=== PATIENT | male | born 1940 | race Caucasian/White ===

== ENCOUNTER 2017-06-01 12:46 | Outpatient (CLI) | payer MEDICARE, OTHER ==
[2017-06-01 17:51] LABS: BASOPHILS % (AUTO) 0.5 %; EOSINOPHILS # (AUTO) 0.1 10^3/uL (0.0-0.7); EOSINOPHILS % (AUTO) 2.1 %; HCT - HEMATOCRIT 46.9 % (42.0-52.0); HGB - HEMOGLOBIN 15.4 g/dL (14.0-18.0); LYMPHOCYTES # (AUTO) 1.4 10^3/uL (1.5-3.5); LYMPHOCYTES % (AUTO) 21.5 %; MEAN CORPUSCULAR HEMOGLOBIN 29.8 pg (27.0-31.0); MEAN CORPUSCULAR HGB CONC 32.8 g/dL (32.0-36.0); MEAN CORPUSCULAR VOLUME 90.6 fL (80.0-94.0); MEAN PLATELET VOLUME 8.9 fL (7.4-11.4); MONOCYTES # (AUTO) 0.5 10^3/uL (0.0-1.0); MONOCYTES % (AUTO) 6.9 %; NEUTROPHILS # (AUTO) 4.6 10^3/uL (1.5-6.6); RED BLOOD COUNT 5.17 10^6/uL (4.70-6.10); RED CELL DISTRIBUTION WIDTH 13.9 % (12.0-15.0); UNCORRECTED WHITE BLOOD COUNT 6.6 x10^3/uL; WHITE BLOOD COUNT 6.6 x10^3/uL (4.8-10.8)
[2017-06-01 18:17] LABS: ALBUMIN/GLOBULIN RATIO 1.3 (1.0-2.2); BILIRUBIN,TOTAL 0.7 mg/dL (0.2-1.0); CALCIUM 9.7 mg/dL (8.5-10.3); CREATININE 1.2 mg/dL (0.6-1.2); POTASSIUM 4.3 mmol/L (3.5-5.0); TOTAL PROTEIN 7.3 g/dL (6.7-8.2)
== END 2017-06-01 12:47 | disposition home or self-care (01) ==
LOC: LAB.F 12:46
PROVIDERS: ATTEND Physician Assistant Medical
DX: I10 Essential (primary) hypertension (principal); E55.9 Vitamin D deficiency, unspecified; Z12.5 Encounter for screening for malignant neoplasm of prostate
CPT/HCPCS: 36415; 80053; 82306; 85025; G0103; 84153

== ENCOUNTER 2017-08-09 14:24 | Outpatient (CLI) | payer MEDICARE, OTHER | END 2017-08-09 14:25 | disposition home or self-care (01) | LOC: SC 14:24 | PROVIDERS: ATTEND Nurse Practitioner Family | DX: G47.33 Obstructive sleep apnea (adult) (pediatric) (principal) | CPT/HCPCS: 99214; G0463; 99212 ==

== ENCOUNTER 2017-09-23 08:06 | Outpatient (CLI) | payer MEDICARE, OTHER ==
[2017-09-23 10:27] LABS: CHOLESTEROL 140 mg/dL; HDL CHOLESTEROL 28 mg/dL; LDL CHOLESTEROL,CALCULATED 73 mg/dL; LDL/HDL RATIO 2.6 (<3.6); VLDL CHOLESTEROL 39 mg/dL
== END 2017-09-23 08:07 | disposition home or self-care (01) ==
LOC: LAB.F 08:06
PROVIDERS: ATTEND Physician Assistant Medical
DX: E78.5 Hyperlipidemia, unspecified (principal)
CPT/HCPCS: 36415; 80061

== ENCOUNTER 2017-11-08 09:18 | Day surgery (SDC) | payer MEDICARE, OTHER ==
[2017-11-08] MEDS ORDERED: LACTATED RINGERS 1,000 ML IV ONE (09:55)
[2017-11-08 12:13] VITALS: BP 130/70
== END 2017-11-08 09:19 | disposition home or self-care (01) ==
LOC: SDS 09:18
PROVIDERS: ATTEND Surgery
PROC: 0DJD8ZZ Inspection of Lower Intestinal Tract, Via Natural or Artificial Opening Endoscopic (ICD-10-PCS; principal; 2017-11-08 10:30)
DX: Z12.11 Encounter for screening for malignant neoplasm of colon (principal); K64.8 Other hemorrhoids; Z79.82 Long term (current) use of aspirin; F32.9 Major depressive disorder, single episode, unspecified; Z87.891 Personal history of nicotine dependence; H54.8 Legal blindness, as defined in USA
CPT/HCPCS: G0121; J7120

== ENCOUNTER 2018-04-08 08:00 | Outpatient (CLI) | payer MEDICARE, OTHER ==
[2018-04-11 14:21] LABS: MUDS CUTOFF CONCENTRATIONS CUTOFF CONC BELOW:
[2018-04-11 14:45] LABS: AMPHETAMINE SCREEN,URINE POSITIVE (NEGATIVE); BENZODIAZEPINES SCREEN, URINE NEGATIVE (NEGATIVE); COCAINE SCREEN URINE NEGATIVE (NEGATIVE); METHADONE SCREEN, URINE NEGATIVE (NEGATIVE); METHAMPHETAMINES SCREEN, URINE NEGATIVE (NEGATIVE); OPIATE SCREEN, URINE NEGATIVE (NEGATIVE); OXYCODONE SCREEN, URINE NEGATIVE (NEGATIVE); PROPOXYPHENE SCREEN, URINE NEGATIVE (NEGATIVE); TRICYCLIC ANTIDEPRESSANT,URINE NEGATIVE (NEGATIVE)
== END 2018-04-08 08:01 | disposition home or self-care (01) ==
LOC: LAB.R 08:00
PROVIDERS: ATTEND Physician Assistant Medical
DX: F90.9 Attention-deficit hyperactivity disorder, unspecified type (principal); Z51.81 Encounter for therapeutic drug level monitoring; Z79.899 Other long term (current) drug therapy
CPT/HCPCS: 80306

== ENCOUNTER 2018-09-26 13:19 | Outpatient (CLI) | payer MEDICARE, OTHER | END 2018-09-26 13:20 | disposition home or self-care (01) | LOC: SC 13:19 | PROVIDERS: ATTEND Nurse Practitioner Family | DX: G47.33 Obstructive sleep apnea (adult) (pediatric) (principal) | CPT/HCPCS: 99214; G0463; 99212 ==

== ENCOUNTER 2018-10-19 09:16 | Outpatient (CLI) | payer MEDICARE, OTHER ==
[2018-10-19 18:11] LABS: ALBUMIN 4.1 g/dL (3.2-5.5); ALBUMIN/GLOBULIN RATIO 1.2 (1.0-2.2); ALKALINE PHOSPHATASE 56 IU/L (42-121); ALT ALANINE AMINOTRANSFERASE 36 IU/L (10-60); AST ASPARTATE AMINOTRANSFERASE 32 IU/L (10-42); BASOPHILS % (AUTO) 0.5 %; BILIRUBIN,TOTAL 0.7 mg/dL (0.2-1.0); BUN - BLOOD UREA NITROGEN 30 mg/dL (6-20); CALCIUM 9.1 mg/dL (8.5-10.3); CARBON DIOXIDE - CO2 27 mmol/L (21-32); CHLORIDE 103 mmol/L (101-111); CHOL/HDL RATIO 3.8 (<5.0); CHOLESTEROL 126 mg/dL; CREATININE 1.4 mg/dL (0.6-1.2); EOSINOPHILS # (AUTO) 0.1 10^3/uL (0.0-0.7); EOSINOPHILS % (AUTO) 1.9 %; GFR - MDRD 49 (>89); GLUCOSE 93 mg/dL (70-100); HDL CHOLESTEROL 33 mg/dL; HGB - HEMOGLOBIN 14.9 g/dL (14.0-18.0); LDL CHOLESTEROL,CALCULATED 64 mg/dL; LDL/HDL RATIO 1.9 (<3.6); LYMPHOCYTES # (AUTO) 1.4 10^3/uL (1.5-3.5); LYMPHOCYTES % (AUTO) 19.3 %; MEAN CORPUSCULAR HEMOGLOBIN 29.7 pg (27.0-31.0); MEAN CORPUSCULAR HGB CONC 32.7 g/dL (32.0-36.0); MEAN CORPUSCULAR VOLUME 90.8 fL (80.0-94.0); MEAN PLATELET VOLUME 8.6 fL (7.4-11.4); MONOCYTES # (AUTO) 0.5 10^3/uL (0.0-1.0); MONOCYTES % (AUTO) 6.8 %; NEUTROPHILS # (AUTO) 5.3 10^3/uL (1.5-6.6); NEUTROPHILS % (AUTO) 71.5 %; PLT - PLATELET COUNT 149 10^3/uL (130-450); RED BLOOD COUNT 5.02 10^6/uL (4.70-6.10); RED CELL DISTRIBUTION WIDTH 14.7 % (12.0-15.0); SODIUM 139 mmol/L (135-145); TOTAL PROTEIN 7.5 g/dL (6.7-8.2); VLDL CHOLESTEROL 29 mg/dL; WHITE BLOOD COUNT 7.5 x10^3/uL (4.8-10.8)
== END 2018-10-19 09:17 | disposition home or self-care (01) ==
LOC: LAB.F 09:16
PROVIDERS: ATTEND Physician Assistant Medical
DX: I10 Essential (primary) hypertension (principal); E78.5 Hyperlipidemia, unspecified
CPT/HCPCS: 36415; 80053; 80061; 83721; 85025

== ENCOUNTER 2019-01-19 09:32 | Outpatient (CLI) | payer MEDICARE, OTHER ==
[2019-01-19] MEDS ORDERED: GADOBUTROL 10 MMOL/10 ML VIAL ONE (10:05)
[2019-01-19] MEDS ORDERED: GADOBUTROL 10 MMOL/10 ML VIAL IVP ONE ×2 (10:42)
--- NOTE | 2019-01-19 14:52 | MRI Report ---
Reason: SHORT TERM MEMORY LOSS, VISUAL HALLUCINATIONS Procedure Date: 01/19/2019 Accession Number: [id number] / [id number] Procedure: MRI - Brain W/WO CPT Code: FULL RESULT: EXAM: MRI BRAIN WITHOUT AND WITH CONTRAST EXAM DATE: 01/19/2019 11:02 AM. CLINICAL HISTORY: 78-year-old man with short-term memory loss and visual hallucinations. COMPARISON: None. TECHNIQUE: Multiplanar, multisequence T1-weighted and fluid-sensitive MR sequences of the brain were performed. Sequences optimized for routine evaluation. Other: None. IV Contrast: 8 cc Gadavist. FINDINGS: Parenchyma: No evidence of acute infarct on diffusion weighted sequence. Without parenchyma demonstrates mild burden of nonspecific FLAIR hyperintensities in the deep cerebral and periventricular white matter, most consistent with sequelae of chronic small vessel ischemic disease and a common finding in this age group. No evidence of prior hemorrhage on susceptibility weighted sequence. No abnormal enhancement. Cerebral volume: Qualitatively normal for age. Hippocampi are also qualitatively normal in size for age. Pituitary: Unremarkable. Ventricles and Extra-axial Spaces: Ventricles are symmetric and normal in size for age. Extra-axial spaces are unremarkable. No abnormal enhancement. Orbits: Status post bilateral lens replacement surgery. Gaze appears disconjugate. Soft tissue contents are otherwise unremarkable. Sinuses: The paranasal sinuses are clear. There is a small right mastoid effusion. Major Vascular Flow Voids: Intact. Dural Venous Sinuses and Major Central Veins: Patent on post-contrast images. IMPRESSION: 1. No acute intracranial abnormality. Specifically, no evidence of acute infarct, hemorrhage, or mass lesion. 2. Mild white matter changes, most consistent with sequelae of chronic small vessel ischemic disease and a common finding in this age group. RADIA
== END 2019-01-19 09:33 | disposition home or self-care (01) ==
LOC: DI 09:32
PROVIDERS: ATTEND Physician Assistant Medical
DX: R41.3 Other amnesia (principal); R44.1 Visual hallucinations
CPT/HCPCS: 70553; A9585

== ENCOUNTER 2019-10-04 08:17 | Outpatient (CLI) | payer MEDICARE, OTHER ==
[2019-10-04 10:42] LABS: BASOPHILS % (AUTO) 0.5 %; EOSINOPHILS # (AUTO) 0.2 10^3/uL (0.0-0.7); EOSINOPHILS % (AUTO) 2.6 %; HGB - HEMOGLOBIN 14.2 g/dL (14.0-18.0); LYMPHOCYTES # (AUTO) 1.8 10^3/uL (1.5-3.5); LYMPHOCYTES % (AUTO) 29.4 %; MEAN CORPUSCULAR HEMOGLOBIN 29.5 pg (27.0-31.0); MEAN CORPUSCULAR VOLUME 92.3 fL (80.0-94.0); MEAN PLATELET VOLUME 10.3 fL (7.4-11.4); MONOCYTES # (AUTO) 0.6 10^3/uL (0.0-1.0); MONOCYTES % (AUTO) 9.1 %; NEUTROPHILS # (AUTO) 3.6 10^3/uL (1.5-6.6); NEUTROPHILS % (AUTO) 57.9 %; PLT - PLATELET COUNT 171 10^3/uL (130-450); RED BLOOD COUNT 4.81 10^6/uL (4.70-6.10); RED CELL DISTRIBUTION WIDTH 14.1 % (12.0-15.0); WHITE BLOOD COUNT 6.3 x10^3/uL (4.8-10.8)
[2019-10-04 11:00] LABS: ALBUMIN 4.2 g/dL (3.2-5.5); ALBUMIN/GLOBULIN RATIO 1.4 (1.0-2.2); ALKALINE PHOSPHATASE 47 IU/L (42-121); ALT ALANINE AMINOTRANSFERASE 34 IU/L (10-60); AST ASPARTATE AMINOTRANSFERASE 26 IU/L (10-42); BILIRUBIN,TOTAL 0.9 mg/dL (0.2-1.0); BUN - BLOOD UREA NITROGEN 39 mg/dL (6-20); CALCIUM 9.1 mg/dL (8.5-10.3); CARBON DIOXIDE - CO2 27 mmol/L (21-32); CHLORIDE 106 mmol/L (101-111); CHOL/HDL RATIO 4.6 (<5.0); CHOLESTEROL 129 mg/dL; CREATININE 1.8 mg/dL (0.6-1.2); GFR - MDRD 37 (>89); GLUCOSE 113 mg/dL (70-100); HDL CHOLESTEROL 28 mg/dL; LDL CHOLESTEROL,CALCULATED 63 mg/dL; LDL/HDL RATIO 2.3 (<3.6); SODIUM 141 mmol/L (135-145); TOTAL PROTEIN 7.1 g/dL (6.7-8.2); VLDL CHOLESTEROL 38 mg/dL
== END 2019-10-04 08:18 | disposition home or self-care (01) ==
LOC: LAB.S 08:17
PROVIDERS: ATTEND Physician Assistant Medical
DX: I10 Essential (primary) hypertension (principal); E78.5 Hyperlipidemia, unspecified
CPT/HCPCS: 36415; 80053; 80061; 83721; 85025

== ENCOUNTER 2019-11-15 15:14 | Outpatient (CLI) | payer MEDICARE, OTHER ==
[2019-11-15 16:13] VITALS: BP 140/73
--- NOTE | 2019-11-15 16:13 | SLEEP CARE CONSULTATION ---
Information from patient questionnaire entered by Sushma Clifton. I have reviewed and concur with the information entered by Sushma Clifton. This document represents the service I personally performed and the decisions made by me, Jane Olson, RN, MSN, [employer]. History of Present Illness Previous diagnosis: Severe, Obstructive Sleep Apnea-Hypopnea Syndrome AHI: 31.1 Reason for follow up: first compliance after device update (update by Clary in May ), annual (last seen 2018) Equipment type: CPAP Equipment obtained from: [employer] Mask style: Nasal (Dreamwear with headgear with and chinstrap) Mask brand: Respironics Backup mask available: Yes (old mask ) Last cushion change: a few months ago CPAP Compliance Data - Data Reviewed with Patient Average duration of nightly device use: 7.1 Compliance rate %: 96.1 (180 days) Current pressure setting (cmH2O): 10 Humidity settin Heated hose settin Average residual AHI: 1.4 Average large leak: 11 min 53 sec Subjective Missed days of use due to: reports: other (uses old CPAP at girlfriends) Patient concerns: reports: nasal congestion, dry mouth, nose, throat (MOUTH). denies: aerophagia, mask discomfort, air blowing in eyes, mask leak noise, condensation in mask/hose, epistaxis Observed to snore while using device: No Current pressure setting perceived as: comfortable On therapy, patient: reports: sleeping better, awakening more refreshed, being more awake and alert during the day, more rested overall. denies: drowsiness while driving (does not drive ) Initial Pierce Sleepiness Scale score: 14 Current Pierce Sleepiness Scale score: 8 Allergies and Home Medications Known drug allergies: Yes (niacin) Home medication list reviewed: Yes (see changes stopped diclofenac /hair-nail gummies ) Allergy and home medication list: Medication Name (generic/name brand) Strength & Dosage Lisinopril-Hydrochlorothiazide 20-25mg tab daily Atorvastatin Calcium 80mg tab one daily Wellbutrin SR (Bupropion HCL) 150mg tab 2 am, 1 afternoon Amphetamine-Dextroamphetamine 20mg tab one daily Triamcinolone Acetonide 0.1% External Cream Apply to affected areas twice daily Fluticasone Propionate 50mcg/act nasal 1-2 sprays each nostril daily Acetaminophen 500mg tab two twice daily as needed Vitamin C 00mg tab one daily Centrum Silver Tab one daily Glucosamine-Chondroitin 500-400mg cap one twice daily Calcium / magnesium / zinc 600mg tab one daily Magnesium Oxide 400mg cap one daily at bedtime Vitamin D 1000IU tab one daily Zyrtec Allergy 10mg tab one daily Aspirin EC delayed release 81mg tab one daily antipscychotic - will call medication name Review of Systems Review of systems same as previous: No (hallucinations and new medication added) Physical Exam Blood Pressure: 140/73 Cuff size: wrist Heart Rate: 71 O2 Saturation: 98 Height: 5 ft 5 in Weight: 171 lb Body Mass Index: 28.4 BMI Classification: Overweight Impression and Plan 1. Obstructive Sleep Apnea-Hypopnea Syndrome, severe, with good treatment compliance and good apnea control. On CPAP therapy, the patient has better sleep quality and is more rested overall. Nasal congestion and dry mouth can be reduced by reducing the heated hose or increasing the CPAP humidity as shown on sample device. The heated hose can be adjusted higher if condensation with higher humidity setting. Saline nasal spray sample was also given to use prior to CPAP to clear nasal secretions and wash off any nasal allergens to facilitate nasal breathing. In addition, a steamy shower before bed will often assist nasal drainage. Printed instructions given on how to change humidity and heated hose settings with rationale explaining why to change. This was given to partner after visit with explanation. ( Patient is blind.)Patient's apnea severity and rationale for treatment to reduce apnea, improve sleep quality and reduce cardiovascular and cerebrovascular events was reviewed. I also reviewed the benefit of consistent device use of CPAP for hypertension, depression/anxiety. * Continue CPAP pressure at [id number] * Implement methods to reduce nasal congestion and oral dryness * Notify me if snoring with mask or feeling that the pressure is too much or too little * Call this office if any problems using CPAP * Return for follow up in 1 year, or sooner if concerns arise Time Spent with Patient (minutes): 28 I spent 100% of this visit face to face with the patient with greater than 50% of this was spent time counseling the patient and coordination of care.
== END 2019-11-15 15:15 | disposition home or self-care (01) ==
LOC: SC 15:14
PROVIDERS: ATTEND Nurse Practitioner Family
DX: G47.33 Obstructive sleep apnea (adult) (pediatric) (principal); E66.3 Overweight; Z68.28 Body mass index [BMI] 28.0-28.9, adult
CPT/HCPCS: 99214; G0463; 99212

== ENCOUNTER 2019-11-25 20:06 | Emergency (ER) | payer MEDICARE, OTHER ==
[2019-11-25 20:13] VITALS: BP 146/64
[2019-11-25] MEDS ORDERED: TETANUS/DIPHTHERIA/PERTUSSIS 0.5 ML SYRINGE IM ONE (20:22)
[2019-11-25] MEDS ORDERED: LIDOCAINE 2%-EPI 1:100000 20 ML MDV SUBQ STA (20:22)
[2019-11-25] MEDS ORDERED: BACITRACIN ZINC OINT 1 PACKET TOP STA (20:23)
--- NOTE | 2019-11-25 20:50 | ED Physician Documentation ---
PD HPI UPPER EXT INJURY - Stated complaint Stated Complaint: LT HAND LAC - Chief complaint Chief Complaint: Laceration - History obtained from History obtained from: Patient, Family - History of Present Illness Location: Left, Hand Type of injury: Laceration Where injury occurred: Home Timing - details: Abrupt onset Pain level max: 3 Pain level now: 2 Improved by: Rest Worsened by: Moving Associated symptoms: No: Weakness, Numbness, Tingling, Swelling, Discolored - Additonal information Additional information: 79-year-old male was sharpening a meat slicing blade at home when it caused a laceration to the dorsum of the left hand. Unknown last tetanus. Patient is right-handed. Review of Systems Constitutional: denies: Fever GI: denies: Vomiting Skin: denies: Rash Neurologic: denies: Focal weakness, Numbness PD PAST MEDICAL HISTORY - Past Medical History Past Medical History: Yes Cardiovascular: Hypertension, High cholesterol Respiratory: Sleep apnea, CPAP use Neuro: None Endocrine/Autoimmune: None GI: GERD : Other HEENT: Chronic vision loss, Other Psych: Depression, Anxiety, Claustrophobia Musculoskeletal: Osteoarthritis, Other Derm: Eczema - Past Surgical History Past Surgical History: Yes General: Appendectomy, Bowel surgery, Colonoscopy, Other Ortho: Rotator cuff repair HEENT: Cataracts, Tonsil/Adenoidectomy, Other - Present Medications Home Medications: Ambulatory Orders Medication Instructions Recorded Confirmed Diclofenac Sodium Dr [Voltaren] 75 mg PO BID 06/14/14 05/23/15 Multivitamin [Multivitamins] 1 each PO DAILY 06/14/14 05/23/15 Fluticasone [Flonase] 50 - 100 mcg LISE DAILY 06/15/14 05/23/15 Lisinopril/Hydrochlorothiazide 10 - 12.5 mg PO DAILY 06/15/14 05/23/15 [Lisinopril-Hctz 20-25 mg Tab] Acetaminophen [Tylenol Extra 1,000 mg PO BID 05/23/15 05/23/15 Strength] Ascorbic Acid [Vitamin C] 1,000 mg PO DAILY 05/23/15 05/23/15 Atorvastatin Calcium 80 mg PO QPM 05/23/15 05/23/15 Cholecalciferol [Vitamin D3] 1,000 unit PO DAILY 05/23/15 05/23/15 Chondroitin Sulfate A Sodium 1,200 mg PO DAILY 05/23/15 05/23/15 [Optiflex-C] Glucosamine Sulfate Dipot Chlr 1,500 mg PO DAILY 05/23/15 05/23/15 [Glucosamine] Magnesium Oxide [Magnesium] 400 mg PO DAILY 05/23/15 05/23/15 Nitroglycerin [Nitrostat] 0.4 mg PO Q15M PRN 05/23/15 05/23/15 Aspirin 81 mg PO 11/08/17 - Allergies Allergies/Adverse Reactions: Allergies Allergy/AdvReac Type Severity Reaction Status Date / Time niacin AdvReac Severe GI Bleed Verified 11/25/19 20:08 - Social History Does the pt smoke?: No Smoking Status: Never smoker Does the pt drink ETOH?: Yes Does the pt have substance abuse?: No - Immunizations Immunizations are current?: No Immunizations: TDAP >10years/unknown PD ED PE NORMAL - Vitals Vital signs reviewed: Yes - General General: Alert and oriented X 3, No acute distress - HEENT HEENT: Moist mucous membranes - Neck Neck: Supple, no meningeal sign - Derm Derm: Warm and dry - Neuro Neuro: Alert and oriented X 3 - Psych Psych: Normal mood, Normal affect PD ED PE EXPANDED - Extremities DAISY UE/Hands Visual: 1 - laceration (7cm, linear, NVI. no tendon injury. no nerve injury.) Results - Vitals Vitals: Vital Signs - 24 hr 11/25/19 20:08 Temperature 37.2 C Heart Rate 73 Respiratory 14 Rate Blood Pressure 146/64 H O2 Saturation 98 Oxygen O2 Source Room air Procedures - Laceration (location) L hand Length in cm: 7 Wound type: Linear, Into subcut fat, Clean Neurovascular status: Sensory intact, Motor intact Tendon involvement: Tendon intact. No: Tendon Injury Anesthesia: Lidocaine 1% with epi Wound Preparation: Irrigated copiously NS Skin layer closure: Nylon, Interrupted, Size #-0 - enter number (4) Other: Patient tolerated well, No complications, Neurovascular intact, Dressing applied, Tetanus booster given (tdap) Complexity: Simple PD MEDICAL DECISION MAKING - ED course Complexity details: considered differential, d/w patient ED course: Patient with a left hand laceration. Wound was cleansed with saline and then closed with sutures. Tdap given. Warnings of infection and instructions on wound care given at bedside. Also counseled on how to minimize scarring. Patient and family counseled regarding signs and symptoms for which I believe and urgent re-evaluation would be necessary. Patient with good understanding of and agreement to plan and is comfortable going home at this time This document was made in part using voice recognition software. While efforts are made to proofread this document, sound alike and grammatical errors may occur. Departure - Departure Disposition: Home, Self Care Clinical Impression: Laceration of hand, left Qualifiers: Encounter type: initial encounter Foreign body presence: without foreign body Qualified Code(s): S61.412A - Laceration without foreign body of left hand, initial encounter Condition: Good Instructions: ED Laceration Hand Follow-Up: Heather Zhong PA-C [Primary Care Provider] - Comments: Follow-up with your doctor in 10 to 14 days for stitch removal. Return if you notice redness, swelling or drainage from the wound. These are signs that may be becoming infected. Change the dressing at least once a day. You can leave it open to air after the first day or 2. Cover when in dirty areas. Discharge Date/Time: 11/25/19 20:50
== END 2019-11-25 20:50 | disposition home or self-care (01) ==
LOC: ED 20:06
DX: S61.412A Laceration without foreign body of left hand, initial encounter (principal); W26.0XXA Contact with knife, initial encounter; Y93.89 Activity, other specified; Y92.009 Unspecified place in unspecified non-institutional (private) residence as the place of occurrence of the external cause; I10 Essential (primary) hypertension
CPT/HCPCS: 12002; 90471; 90715; 99282; 99283; A9270

== ENCOUNTER 2019-12-17 12:54 | Emergency (ER) | payer MEDICARE, OTHER ==
--- NOTE | 2019-12-17 13:07 | ED Physician Documentation ---
PD HPI WOUND RECHECK - Stated complaint Stated Complaint: SUTURE REMOVAL - Histroy obtained from History obtained from: Patient - History of Present Illness Location: Left Hand Timing - onset: How many days ago (13) Associated symptoms: No: Redness, Swelling, Drainage Recently seen: Emergency Dept (Had sutures almost 2 weeks ago in the back of his hand. He states is healing well and is here for suture removal.) Review of Systems Constitutional: denies: Fever, Chills Neurologic: denies: Focal weakness, Numbness PD PAST MEDICAL HISTORY - Past Medical History Cardiovascular: Hypertension, High cholesterol Respiratory: Sleep apnea, CPAP use Neuro: None Endocrine/Autoimmune: None GI: GERD : Other HEENT: Chronic vision loss, Other Psych: Depression, Anxiety, Claustrophobia Musculoskeletal: Osteoarthritis, Other Derm: Eczema - Past Surgical History Past Surgical History: Yes General: Appendectomy, Bowel surgery, Colonoscopy, Other Ortho: Rotator cuff repair HEENT: Cataracts, Tonsil/Adenoidectomy, Other - Present Medications Home Medications: Ambulatory Orders Medication Instructions Recorded Confirmed Diclofenac Sodium Dr [Voltaren] 75 mg PO BID 06/14/14 05/23/15 Multivitamin [Multivitamins] 1 each PO DAILY 06/14/14 05/23/15 Fluticasone [Flonase] 50 - 100 mcg LISE DAILY 06/15/14 05/23/15 Lisinopril/Hydrochlorothiazide 10 - 12.5 mg PO DAILY 06/15/14 05/23/15 [Lisinopril-Hctz 20-25 mg Tab] Acetaminophen [Tylenol Extra 1,000 mg PO BID 05/23/15 05/23/15 Strength] Ascorbic Acid [Vitamin C] 1,000 mg PO DAILY 05/23/15 05/23/15 Atorvastatin Calcium 80 mg PO QPM 05/23/15 05/23/15 Cholecalciferol [Vitamin D3] 1,000 unit PO DAILY 05/23/15 05/23/15 Chondroitin Sulfate A Sodium 1,200 mg PO DAILY 05/23/15 05/23/15 [Optiflex-C] Glucosamine Sulfate Dipot Chlr 1,500 mg PO DAILY 05/23/15 05/23/15 [Glucosamine] Magnesium Oxide [Magnesium] 400 mg PO DAILY 05/23/15 05/23/15 Nitroglycerin [Nitrostat] 0.4 mg PO Q15M PRN 05/23/15 05/23/15 Aspirin 81 mg PO 11/08/17 - Allergies Allergies/Adverse Reactions: Allergies Allergy/AdvReac Type Severity Reaction Status Date / Time niacin AdvReac Severe GI Bleed Verified 11/25/19 20:08 - Social History Does the pt smoke?: No Smoking Status: Never smoker Does the pt drink ETOH?: Yes Does the pt have substance abuse?: No - Immunizations Immunizations are current?: No Immunizations: TDAP >10years/unknown PD ED PE NORMAL - Vitals Vital signs reviewed: Yes - General General: Alert and oriented X 3, No acute distress, Well developed/nourished - Derm Derm: Normal color, Warm and dry - Extremities Extremities: Other (Dorsum of the left hand shows a well-healing laceration with sutures intact and no signs of infection. The edges appear closed well. Good movement of the hand muscles.) - Neuro Neuro: No motor deficit, No sensory deficit Results - Vitals Vitals: Vital Signs - 24 hr 12/17/19 13:00 Temperature 36.6 C Heart Rate 64 Respiratory 18 Rate Blood Pressure 119/78 O2 Saturation 100 Oxygen O2 Source Room air Departure - Departure Disposition: Home, Self Care Clinical Impression: Encounter for removal of sutures Condition: Stable Record reviewed to determine appropriate education?: Yes Instructions: ED Wound Check Sutr Remove No Infec Follow-Up: Heather Zhong PA-C [Primary Care Provider] - Comments: The wound looks good and appears well-healing. Continue a little bit of oi ntment or such once or twice daily to keep the area soft and the skin not dry. Recheck of signs of infection develop. Discharge Date/Time: 12/17/19 13:15
[2019-12-17 13:19] VITALS: BP 119/78
== END 2019-12-17 13:15 | disposition home or self-care (01) ==
LOC: ED 12:54
DX: S61.412D Laceration without foreign body of left hand, subsequent encounter (principal); Z48.02 Encounter for removal of sutures
CPT/HCPCS: 99281

== ENCOUNTER 2019-12-21 08:57 | Outpatient (CLI) | payer MEDICARE, OTHER ==
[2019-12-21 09:25] LABS: ALBUMIN 4.2 g/dL (3.2-5.5); ALBUMIN/GLOBULIN RATIO 1.2 (1.0-2.2); BILIRUBIN,TOTAL 0.7 mg/dL (0.2-1.0); CALCIUM 9.6 mg/dL (8.5-10.3); CREATININE 1.3 mg/dL (0.6-1.2); TOTAL PROTEIN 7.6 g/dL (6.7-8.2)
== END 2019-12-21 08:58 | disposition home or self-care (01) ==
LOC: LAB 08:57
PROVIDERS: ATTEND Physician Assistant Medical
DX: N28.9 Disorder of kidney and ureter, unspecified (principal); Z12.5 Encounter for screening for malignant neoplasm of prostate; E29.1 Testicular hypofunction
CPT/HCPCS: 36415; 80053; 81599; G0103; 84153; 84402; 84403

== ENCOUNTER 2020-03-06 08:15 | Outpatient (CLI) | payer MEDICARE, OTHER ==
[2020-03-06 15:52] LABS: HB2 TOTAL 14.6 g/dL; HEMOGLOBIN A1C 0.61 g/dL
[2020-03-06 16:02] LABS: CHOL/HDL RATIO 3.5 (<5.0); CHOLESTEROL 102 mg/dL; HDL CHOLESTEROL 29 mg/dL; LDL CHOLESTEROL,CALCULATED 36 mg/dL; LDL/HDL RATIO 1.2 (<3.6); VLDL CHOLESTEROL 37 mg/dL
== END 2020-03-06 08:16 | disposition home or self-care (01) ==
LOC: LAB.S 08:15
PROVIDERS: ATTEND Physician Assistant
DX: Z79.899 Other long term (current) drug therapy (principal)
CPT/HCPCS: 36415; 80061; 83036; 83721

== ENCOUNTER 2020-11-06 09:28 | Outpatient (CLI) | payer MEDICARE, OTHER ==
[2020-11-06 14:47] LABS: BASOPHILS % (AUTO) 0.2 %; EOSINOPHILS # (AUTO) 0.1 10^3/uL (0.0-0.7); EOSINOPHILS % (AUTO) 1.8 %; HGB - HEMOGLOBIN 13.5 g/dL (14.0-18.0); LYMPHOCYTES # (AUTO) 1.4 10^3/uL (1.5-3.5); LYMPHOCYTES % (AUTO) 29.2 %; MEAN CORPUSCULAR HEMOGLOBIN 29.7 pg (27.0-31.0); MEAN CORPUSCULAR HGB CONC 32.1 g/dL (32.0-36.0); MEAN CORPUSCULAR VOLUME 92.7 fL (80.0-94.0); MEAN PLATELET VOLUME 10.4 fL (7.4-11.4); MONOCYTES # (AUTO) 0.4 10^3/uL (0.0-1.0); MONOCYTES % (AUTO) 8.2 %; NEUTROPHILS # (AUTO) 2.9 10^3/uL (1.5-6.6); NEUTROPHILS % (AUTO) 60.4 %; PLT - PLATELET COUNT 141 10^3/uL (130-450); RED BLOOD COUNT 4.54 10^6/uL (4.70-6.10); RED CELL DISTRIBUTION WIDTH 13.8 % (12.0-15.0); WHITE BLOOD COUNT 4.9 x10^3/uL (4.8-10.8)
[2020-11-06 15:09] LABS: HEMOGLOBIN A1c% 6.2 % (4.27-6.07)
[2020-11-06 15:12] LABS: ALBUMIN/GLOBULIN RATIO 1.3 (1.0-2.2); ALKALINE PHOSPHATASE 58 IU/L (42-121); ALT ALANINE AMINOTRANSFERASE 32 IU/L (10-60); AST ASPARTATE AMINOTRANSFERASE 26 IU/L (10-42); BILIRUBIN,TOTAL 0.7 mg/dL (0.2-1.0); BUN - BLOOD UREA NITROGEN 28 mg/dL (6-20); CALCIUM 9.2 mg/dL (8.5-10.3); CARBON DIOXIDE - CO2 26 mmol/L (21-32); CHLORIDE 105 mmol/L (101-111); CHOL/HDL RATIO 4.2 (<5.0); CHOLESTEROL 121 mg/dL; CREATININE 1.3 mg/dL (0.6-1.2); GLUCOSE 109 mg/dL (70-100); HDL CHOLESTEROL 29 mg/dL; LDL CHOLESTEROL,CALCULATED 55 mg/dL; LDL/HDL RATIO 1.9 (<3.6); VLDL CHOLESTEROL 37 mg/dL
== END 2020-11-06 09:29 | disposition home or self-care (01) ==
LOC: LAB.S 09:28
PROVIDERS: ATTEND Physician Assistant
DX: E16.2 Hypoglycemia, unspecified (principal); I10 Essential (primary) hypertension; E78.5 Hyperlipidemia, unspecified; Z79.899 Other long term (current) drug therapy; Z12.5 Encounter for screening for malignant neoplasm of prostate; F90.9 Attention-deficit hyperactivity disorder, unspecified type
CPT/HCPCS: 36415; 80053; 80061; 83036; 84443; 85025; G0103; 83721; 84153

== ENCOUNTER 2020-11-18 08:00 | Outpatient (CLI) | payer MEDICARE, OTHER ==
--- NOTE | 2020-11-18 16:09 | XRAY Report ---
PROCEDURE: Elbow 2 View RT INDICATIONS: ELBOW JOINT PAIN, RIGHT TECHNIQUE: 2 views of the elbow were acquired. COMPARISON: None. FINDINGS: Bones: No fractures or dislocations. No suspicious bony lesions. Large olecranon spurring with over lying soft tissue swelling. There is also cortical hypertrophy and irregularity at the medial and lat eral epicondyles. Soft tissues: No elbow joint effusion. No suspicious soft tissue calcifications. IMPRESSION: Large olecranon spur with adjacent soft tissue swelling, possibly bursitis. Cortical irregularity and hypertrophy at the medial and lateral epicondyles raising possibility of ch ronic medial and lateral epicondylitis syndrome. Recommend correlation with point tenderness. Reviewed by: Octavio Jamil MD on 11/18/2020 4:08 PM PST Approved by: Octavio Jamil MD on 11/18/2020 4:08 PM PST Station ID: [id number]
[2020-11-18 22:41] LABS: BF CLARITY CLOUDY; BF COLOR PINK; BF SOURCE JOINT; CC,BF RBC 29000 /mm^3; CC,BF WBC 740 /mm^3; LYMPHOCYTES %,BODY FLUID 40 %; MESOTHELIAL %, BF 0 %; NEUTROPHILS %, BF 60 %
== END 2020-11-18 23:59 | disposition home or self-care (01) ==
LOC: DI.S 08:00
PROVIDERS: ATTEND Physician Assistant Medical
DX: M77.8 Other enthesopathies, not elsewhere classified (principal); M25.521 Pain in right elbow; R22.32 Localized swelling, mass and lump, left upper limb
CPT/HCPCS: 87070; 87205; 89051; 89060

== ENCOUNTER 2021-06-16 10:04 | Emergency (ER) | payer MEDICARE, OTHER ==
[2021-06-16] MEDS ORDERED: SODIUM CHLORIDE 0.9% 1,000 ML IV STA ×3 (10:40→12:41)
[2021-06-16 10:47] LABS: BASOPHILS % (AUTO) 0.3 %; EOSINOPHILS # (AUTO) 0.1 10^3/uL (0.0-0.7); EOSINOPHILS % (AUTO) 0.5 %; HGB - HEMOGLOBIN 15.7 g/dL (14.0-18.0); LYMPHOCYTES # (AUTO) 0.9 10^3/uL (1.5-3.5); LYMPHOCYTES % (AUTO) 9.4 %; MEAN CORPUSCULAR VOLUME 93.5 fL (80.0-94.0); MONOCYTES # (AUTO) 0.1 10^3/uL (0.0-1.0); MONOCYTES % (AUTO) 0.9 %; NEUTROPHILS # (AUTO) 8.6 10^3/uL (1.5-6.6); NEUTROPHILS % (AUTO) 88.6 %; PLT - PLATELET COUNT 164 10^3/uL (130-450); RED BLOOD COUNT 5.24 10^6/uL (4.70-6.10); RED CELL DISTRIBUTION WIDTH 14.7 % (12.0-15.0); WHITE BLOOD COUNT 9.7 x10^3/uL (4.8-10.8)
--- NOTE | 2021-06-16 11:19 | ED Physician Documentation ---
PD HPI ABD PAIN - Stated complaint Stated Complaint: MALE - Chief complaint Chief Complaint: Abd Pain - History obtained from History obtained from: Patient, Family - Additional information Additional information: Patient comes to ED with chief complaint of acute exacerbation of chronic constipation. He states he has not had much of a bowel movement in the last 2 weeks and has had severe abdominal cramping and distention since last night. No nausea or vomiting. Patient states that he has been traveling in [place] and did try some MiraLAX there, but that did not work. His significant other states she gave it to him several days in a single week and did not have any did not have any response. Patient has a history of appendectomy, bowel resection, colostomy, and colostomy takedown with bowel anastomosis. No history of bowel obstruction. Patient states he has not been eating or drinking much this last several days because of the discomfort. Minimal gas production the last 24 hours. No other complaints at this time. Review of Systems Ten Systems: 10 systems reviewed and negative Constitutional: reports: Reviewed and negative Eyes: reports: Reviewed and negative Ears: reports: Reviewed and negative Nose: reports: Reviewed and negative Throat: reports: Reviewed and negative Cardiac: reports: Reviewed and negative Respiratory: reports: Reviewed and negative GI: reports: Abdominal Pain, Constipation : reports: Reviewed and negative Skin: reports: Reviewed and negative Musculoskeletal: reports: Reviewed and negative Neurologic: reports: Reviewed and negative Psychiatric: reports: Reviewed and negative Endocrine: reports: Reviewed and negative Immunocompromised: reports: Reviewed and negative PD PAST MEDICAL HISTORY - Past Medical History Cardiovascular: Hypertension, High cholesterol Respiratory: Sleep apnea, CPAP use Neuro: None Endocrine/Autoimmune: None GI: GERD : Other HEENT: Chronic vision loss, Other Psych: Depression, Anxiety, Claustrophobia Musculoskeletal: Osteoarthritis, Other Derm: Eczema - Past Surgical History Past Surgical History: Yes General: Appendectomy, Bowel surgery, Colonoscopy, Other Ortho: Rotator cuff repair HEENT: Cataracts, Tonsil/Adenoidectomy, Other - Present Medications Home Medications: Ambulatory Orders Medication Instructions Recorded Confirmed Diclofenac Sodium Dr [Voltaren] 75 mg PO BID 06/14/14 05/23/15 Multivitamin [Multivitamins] 1 each PO DAILY 06/14/14 05/23/15 Fluticasone [Flonase] 50 - 100 mcg LISE DAILY 06/15/14 05/23/15 Lisinopril/Hydrochlorothiazide 10 - 12.5 mg PO DAILY 06/15/14 05/23/15 [Lisinopril-Hctz 20-25 mg Tab] Acetaminophen [Tylenol Extra 1,000 mg PO BID 05/23/15 05/23/15 Strength] Ascorbic Acid [Vitamin C] 1,000 mg PO DAILY 05/23/15 05/23/15 Atorvastatin Calcium 80 mg PO QPM 05/23/15 05/23/15 Cholecalciferol [Vitamin D3] 1,000 unit PO DAILY 05/23/15 05/23/15 Chondroitin Sulfate A Sodium 1,200 mg PO DAILY 05/23/15 05/23/15 [Optiflex-C] Glucosamine Sulfate Dipot Chlr 1,500 mg PO DAILY 05/23/15 05/23/15 [Glucosamine] Magnesium Oxide [Magnesium] 400 mg PO DAILY 05/23/15 05/23/15 Nitroglycerin [Nitrostat] 0.4 mg PO Q15M PRN 05/23/15 05/23/15 Aspirin 81 mg PO 11/08/17 Peg 3350/Na Sulf,Bicarb,Cl/KCl 4,000 ml PO ONCE 1 Days #1 each 06/16/21 [Golytely] - Allergies Allergies/Adverse Reactions: Allergies Allergy/AdvReac Type Severity Reaction Status Date / Time niacin AdvReac Severe GI Bleed Verified 11/25/19 20:08 - Social History Does the pt smoke?: No Smoking Status: Never smoker Does the pt drink ETOH?: Yes Does the pt have substance abuse?: No - Immunizations Immunizations are current?: No Immunizations: TDAP >10years/unknown PD ED PE NORMAL - Vitals Vital signs reviewed: Yes - General General: Alert and oriented X 3, Other (Patient appears uncomfortable, Lying with eyes closed and occasionally moaning.) - HEENT HEENT: Atraumatic, PERRL, EOMI, Moist mucous membranes - Neck Neck: Supple, no meningeal sign - Cardiac Cardiac: RRR, No murmur, Strong equal pulses - Respiratory Respiratory: No respiratory distress, Clear bilaterally - Abdomen Abdomen: Soft, Other (Distended, tight abdomen with moderate diffuse tenderness. No rebound or guarding.) - Rectal Rectal: Other (Good rectal tone. Copious amounts of impacted, claylike stool in rectal vault. No gross blood.) - Derm Derm: Normal color, Warm and dry, No rash - Extremities Extremities: No deformity, No edema, No calf tenderness / cord - Neuro Neuro: Alert and oriented X 3 - Psych Psych: Normal mood, Normal affect Results - Vitals Vitals: Vital Signs - 24 hr 06/16/21 06/16/21 06/16/21 10:11 11:16 12:02 Temperature 36 C L Heart Rate 54 L 66 Respiratory 16 27 H Rate Blood Pressure 82/51 L 74/51 L 97/54 L O2 Saturation 97 99 06/16/21 06/16/21 13:35 15:05 Temperature Heart Rate 75 Respiratory 29 H Rate Blood Pressure 112/54 L 104/63 O2 Saturation 95 Oxygen O2 Source Room air - EKG (time done) 1229 Rate: Rate (enter#) (69) Rhythm: NSR Andrews: Normal Intervals: Normal DE, LBBB, Other (IVCD) Ischemia: ST elevation c/w repol, Non specific changes Compare to prior EKG: Old EKG unavailable Computer interpretation: Agree with computer - Labs Labs: Laboratory Tests 06/16/21 06/16/21 06/16/21 10:35 10:49 11:48 WBC 9.7 RBC 5.24 Hgb 15.7 Hct 49.0 MCV 93.5 MCH 30.0 MCHC 32.0 RDW 14.7 Plt Count 164 MPV 10.0 Neut # (Auto) 8.6 H Lymph # (Auto) 0.9 L [place] # (Auto) 0.1 Eos # (Auto) 0.1 Baso # (Auto) 0.0 Absolute Nucleated RBC 0.00 Nucleated RBC % 0.0 Sodium 144 Potassium 4.6 Chloride 110 Carbon Dioxide 23 Anion Gap 11.0 BUN 39 H Creatinine 1.7 H Estimated GFR (MDRD) 39 L Glucose 103 H Lactic Acid 1.6 Calcium 9.3 Total Bilirubin 1.6 H AST 79 H ALT 48 Alkaline Phosphatase 58 Total Protein 7.0 Albumin 4.1 Globulin 2.9 Albumin/Globulin Ratio 1.4 Lipase 54 H PD MEDICAL DECISION MAKING - ED course Complexity details: reviewed results, re-evaluated patient, considered differential, d/w patient ED course: Disimpaction was performed by myself during my initial exam, and produced approximately 400 cc worth of pasty, impacted, claylike stool. I did order an enema after this. The patient's blood pressure was low and he was given a liter 0.9 normal saline without much change. Second liter was ordered. The patient is not tachycardic and was afebrile here in the emergency department. Labs revealed normal WBC and lactate. After the 3rd L of NS, pt's BP had finally normalized and pt appeared more alert, though still uncomfortable. He was sent for a CT scan of the abd/pelvis, which showed obstipation, but no serious pathology. Pt was given a dose of gastrograffin in the ED to encourage moving of his bowels. We have discussed the usual indications for return. Departure - Departure Disposition: 01 Home, Self Care Clinical Impression: Constipation, Dehydration Condition: Stable Instructions: ED Constipation, ED Dehydration Prescriptions: Peg 3350/Na Sulf,Bicarb,Cl/KCl [Golytely] 4,000 ml PO ONCE 1 Days #1 each Comments: You have been treated in the emergency department today for constipation and dehydration. It is extremely important that you eat a higher fiber diet, and also, continues the stool softeners and the weekly enemas. There is no evidence of an emergent condition today. Your blood pressure has come up nicely with IV fluids, and your labs and CT scan do not show any serious abnormalities. You do have a lot of stool in your colon and the only way to get this out is to continue to take laxatives that will help your bowels to move. This will not be a comfortable process, but it is not advisable to be on any sort of strong pain medication, as this will make your constipation worse. It is very very important that you eat a high-fiber diet. This means that every meal, you should have a large portion of fresh fruits and vegetables. Eating whole-grain products will also be better than the highly refined ones for this purpose, not to mention that they are nutritionally superior. You have been disimpacted in the emergency department today and you have also been given a potent liquid laxative. You will most likely need to follow-up this dose with more doses to completely clear out your colon. Please be aggressive about doing this so that you can complete the process of clearing out the impacted stool. You may follow-up with your primary care physician as needed. Discharge Date/Time: 06/16/21 15:06
[2021-06-16 12:10] LABS: ALBUMIN 4.1 g/dL (3.2-5.5); ALBUMIN/GLOBULIN RATIO 1.4 (1.0-2.2); BILIRUBIN,TOTAL 1.6 mg/dL (0.2-1.0); CALCIUM 9.3 mg/dL (8.5-10.3); CREATININE 1.7 mg/dL (0.6-1.2); POTASSIUM 4.6 mmol/L (3.5-5.0)
[2021-06-16] MEDS ORDERED: IOVERSOL 320 100 ML VIAL IVP ONE ×2 (12:56→15:22)
--- NOTE | 2021-06-16 13:38 | CT Report ---
PROCEDURE: Abdomen/Pelvis W INDICATIONS: abd pain/hypotension/no bm CONTRAST: IV CONTRAST: Optiray 320 ml: 100 PO CONTRAST: *NO PO CONTRAST TECHNIQUE: After the administration of intravenous contrast, 5 mm thick sections acquired from the diaphragms to the symphysis. 5 mm thick coronal and sagittal reformats were acquired. For radiation dose reducti on, the following was used: automated exposure control, adjustment of mA and/or kV according to thomas ent size. COMPARISON: 05/22/2015 FINDINGS: Image quality: Excellent. ABDOMEN: Lung bases: Mild bibasilar pulmonary fibrosis and bibasilar atelectasis. Heart size is normal. Moder ate coronary artery calcifications. Solid organs: Liver and spleen are normal in size and enhancement. Gallbladder is markedly contract ed, within normal limits. Biliary system is non dilated. Pancreas enhances normally. No adrenal no dules. Kidneys demonstrate normal size and enhancement, without hydronephrosis. Peritoneum and bowel: Mild hiatal hernia. Distal esophageal wall thickening along the GE junction, po ssibly representing esophagitis. Cannot exclude stricture. Esophagus is dilated and fluid-filled. Sma ll bowel loops have a normal caliber. The colon is redundant and diffusely distended. The ascending c olon and transverse colon and descending colon are fluid-filled. The sigmoid and rectum have a large amount of stool: None, including a moderate fecal impaction. Distal colonic region clips. Nodes and vessels: No retroperitoneal or mesenteric adenopathy by size criteria. Aorta and inferior vena cava are normal in size. Miscellaneous: Small ventral hernia containing fat just above the pubic symphysis. PELVIS: Genitourinary: Bladder wall thickness is normal. Miscellaneous: No inguinal hernias or adenopathy. Bones: No suspicious bony lesions. No vertebral body compression fractures. Extensive lumbar degen erative change with multilevel severe canal stenosis. IMPRESSION: 1. The colon is redundant. Moderate rectal fecal impaction with large amount of fecal debris present in the rectum and cecum. The remainder of the colon is distended and filled with fluid. 2. Mild bibasilar pulmonary fibrosis and bibasilar atelectasis. 3. Diffuse lumbar degenerative change with multilevel severe canal stenosis. 4. Mild hiatal hernia. Dilated esophagus. Possible distal esophagitis versus esophageal stricture. Reviewed by: Nam Naylor MD on 06/16/2021 1:37 PM PDT Approved by: Nam Naylor MD on 06/16/2021 1:37 PM PDT Station ID: [id number]
[2021-06-16] MEDS ORDERED: DIATRIZOATE MEGLU/DIATRIZO SOD 30 ML BOTTLE PO ONE (13:42)
[2021-06-16 15:06] VITALS: BP 104/63
== END 2021-06-16 15:06 | disposition home or self-care (01) ==
LOC: ED 10:04
DX: K59.09 Other constipation (principal); E86.0 Dehydration; I10 Essential (primary) hypertension
CPT/HCPCS: 36415; 74177; 80053; 83605; 83690; 85025; 93005; 96360; 96361; 99284; Q9967

== ENCOUNTER 2021-06-16 16:18 | Outpatient (CLI) | payer MEDICARE, OTHER | END 2021-06-16 16:19 | disposition E | LOC: EMS 16:18 | DX: I46.9 Cardiac arrest, cause unspecified (principal) | CPT/HCPCS: A0425; A0429 ==